=== PATIENT | female | born 1995 | race Caucasian/White ===

== ENCOUNTER 2025-06-11 12:36 | Emergency (ER) | payer BC, MEDICAID ==
[2025-06-11 12:51] VITALS: BP 115/83; PULSE 82
[2025-06-11 13:03] LABS: PLATELET COUNT,PLT 262.0 K/uL (130-375); RED BLOOD CELL COUNT 4.58 M/uL (3.77-5.24); WHITE BLOOD CELL COUNT,WBC 9.1 K/uL (3.2-11.0)
== END 2025-06-11 14:28 | disposition home or self-care (01) ==
LOC: JP.ED 12:36
DX: N93.9 Abnormal uterine and vaginal bleeding, unspecified (principal); Z79.899 Other long term (current) drug therapy
CPT/HCPCS: 36415; 81025; 85027; 99284